=== PATIENT | female | born 1935 | race Two or more races ===

== ENCOUNTER 2017-05-14 06:29 | Day surgery (SDC) | payer MEDICARE, OTHER ==
[~2017-05-14] VITALS: Ht 152.4 cm; Wt 45.8 kg
[2017-05-14 07:19] VITALS: BP 145/66
[2017-05-14 10:56] VITALS: BP 125/63
== END 2017-05-14 10:40 | disposition home or self-care (01) ==
LOC: GI 06:29 → OR 08:30 → GI 10:40
PROVIDERS: Internal Medicine Gastroenterology
PROC: 0DB68ZX Excision of Stomach, Via Natural or Artificial Opening Endoscopic, Diagnostic (ICD-10-PCS; principal; 2017-05-14 08:30)
DX: K29.70 Gastritis, unspecified, without bleeding (principal); E11.9 Type 2 diabetes mellitus without complications; K59.00 Constipation, unspecified; M19.90 Unspecified osteoarthritis, unspecified site; Z68.20 Body mass index [BMI] 20.0-20.9, adult
CPT/HCPCS: 43235; J1200; J1610; J2250; J2310; J3010; J3490

== ENCOUNTER 2019-03-03 07:56 | Day surgery (SDC) | payer MEDICARE, OTHER ==
[~2019-03-03] VITALS: Ht 152.4 cm; Wt 47.6 kg
[2019-03-03 08:45] VITALS: BP 143/43
[2019-03-03 14:24] VITALS: BP 121/57
== END 2019-03-03 11:50 | disposition home or self-care (01) ==
LOC: DS 07:56 → OR 11:00 → DS 11:00
DX: R10.13 Epigastric pain (principal); K59.09 Other constipation; K12.1 Other forms of stomatitis; E11.9 Type 2 diabetes mellitus without complications; F32.9 Major depressive disorder, single episode, unspecified; E78.00 Pure hypercholesterolemia, unspecified; Z79.84 Long term (current) use of oral hypoglycemic drugs; Z79.899 Other long term (current) drug therapy; Z86.2 Personal history of diseases of the blood and blood-forming organs and certain disorders involving the immune mechanism; Z90.710 Acquired absence of both cervix and uterus; Z98.890 Other specified postprocedural states
CPT/HCPCS: 43235; 87081; J1200; J1610; J2250; J2310; J3010; J3490

== ENCOUNTER 2019-05-06 15:39 | Emergency (ER) | payer MEDICARE, OTHER ==
[~2019-05-06] VITALS: Ht 152.4 cm; Wt 44.5 kg
[2019-05-06 15:54] VITALS: Ht 152.4 cm; Wt 44.5 kg
[2019-05-06 17:14] LABS: microscopic required? NO
[2019-05-06 17:30] LABS: BASOPHIL % 0.4 % (0-2); PLATELET COUNT 360 x10^3mcL (130-400)
[2019-05-06 17:34] LABS: urine erythrocyte NEGATIVE (NEGATIVE)
[2019-05-06 17:35] LABS: CALCIUM 9.1 mg/dL (8.5-10.1); CARBON DIOXIDE 26.4 mmol/L (21-32); CHLORIDE SERUM 104 mmol/L (98-107); CREATININE SERUM 0.8 mg/dL (0.6-1.0); GLUCOSE SERUM 110 mg/dL (74-106); POTASSIUM SERUM 4.4 mmol/L (3.5-5.1); RED CELL DISTRIBUTION WIDTH 17.2 % (11.5-14.5); SODIUM SERUM 139 mmol/L (136-145)
[2019-05-06 17:42] LABS: AMPHETAMINE QUAL UR NONE DETECTED (See below)
[2019-05-06 17:46] LABS: ALKALINE PHOSPHATASE 52 U/L (46-116); ALT/SGPT 21 U/L (14-59); AST/SGOT 27 U/L (15-37); BILIRUBIN TOTAL 0.56 mg/dL (0.20-1.00); HDL CHOLESTEROL 51 mg/dL (40-60); LIPASE 164 IU/L (73-393); T4(THYROXINE) 7.3 ug/dL (4.7-13.3); TOTAL PROTEIN, SERUM 6.6 g/dL (6.4-8.2)
[2019-05-06 17:48] LABS: ALBUMIN 3.3 g/dL (3.4-5.0); CHOLESTEROL 112 mg/dL (<200)
[2019-05-06 19:56] VITALS: BP 144/76
== END 2019-05-06 19:56 | disposition home or self-care (01) ==
LOC: ED 15:39
PROVIDERS: Emergency Medicine
DX: M54.5 Low back pain (principal); E11.9 Type 2 diabetes mellitus without complications; E78.00 Pure hypercholesterolemia, unspecified; H91.90 Unspecified hearing loss, unspecified ear; R26.9 Unspecified abnormalities of gait and mobility; Z90.49 Acquired absence of other specified parts of digestive tract
CPT/HCPCS: J1100; J1885; J7030